=== PATIENT | male | born 1985 | race American Indian/Alaskan Native ===

== ENCOUNTER 2018-01-12 18:52 | Emergency (ER) | payer SELFPAY ==
[2018-01-12] MEDS ORDERED: TYLENOL ONE (19:28)
[2018-01-12] MEDS ORDERED: TYLENOL PO ONE (19:29)
[2018-01-12] MEDS ORDERED: TORADOL IM ONE (21:30)
[2018-01-12] MEDS ORDERED: BENADRYL PO ONE (21:30)
--- NOTE | 2018-01-12 21:48 | Emergency Department Report ---
HPI - General Chief Complaint: Extremity Injury, Upper Time Seen by Provider: 01/12/18 21:10 - HPI HPI: Patient is a 32-year-old male with no prior medical history presents to ED complaining of right thumb pain for the past 5 days patient states that he thought he had a splinter in his thumb and try to get it out with a pain and had some pus come out. Patient states since then he's had worsening pain to the right thumb. She denies any other problems, he denies fevers/chills/nausea vomiting/ ED Past Medical Hx - Past Medical History Previous Medical History?: No - Surgical History Past Surgical History?: Yes Additional Surgical History: Metal plate to left lower jaw - Social History Smoking Status: Current Every Day Smoker Substance Use Type: Alcohol, Marijuana - Medications Home Medications: Home Medications Medication Instructions Recorded Confirmed Last Taken Type Cephalexin [Keflex] 500 mg PO Q12HR #12 cap 01/12/18 Unknown Rx Ibuprofen [Motrin] 800 mg PO Q8HR PRN #30 tablet 01/12/18 Unknown Rx ED Review of Systems ROS: Stated complaint: R THUMB SWELLING Other details as noted in HPI Constitutional: denies: chills, fever Eyes: denies: eye pain, eye discharge, vision change ENT: denies: ear pain, throat pain Respiratory: denies: cough, shortness of breath, wheezing Cardiovascular: denies: chest pain, palpitations Endocrine: no symptoms reported Gastrointestinal: denies: abdominal pain, nausea, diarrhea Genitourinary: denies: urgency, dysuria Musculoskeletal: denies: back pain, joint swelling, arthralgia Skin: denies: rash, lesions Neurological: denies: headache, weakness, paresthesias Psychiatric: denies: anxiety, depression Hematological/Lymphatic: denies: easy bleeding, easy bruising Physical Exam - Physical Exam Vital Signs: Vital Signs 01/12/18 01/12/18 18:55 19:31 Temperature 99.2 F Pulse Rate 81 Respiratory 18 18 Rate Blood Pressure 134/93 O2 Sat by Pulse 96 Oximetry Physical Exam: GENERAL: Alert and oriented x3, no apparent distress, Normal Gait, atraumatic. NECK: Supple. Non edematous, No carotid bruits. No lymphadenopathy or thyromegaly. No C-spine tenderness LUNGS: Symetrical with respiration, No wheezing, no rales or crackles, CTAB. HEART: S1, S2 present, regular rate and rhythm without murmur, no rubs, no gallops. Non tender to palpation EXTREMITIES/MUSCULOSKELETAL: No cyanosis, clubbing, rash, lesions or edema. Full ROM bilaterally. UE/LE Pulses 2+ bilaterally. Right thumb minimal swelling at the anterior lateral aspect. Tenderness to palpation NEUROLOGIC: The patient is cooperative with no focal neurologic deficits. SKIN: Warm and dry, No lesions, No ulceration or induration present. ED Course Vital Signs 01/12/18 01/12/18 18:55 19:31 Temperature 99.2 F Pulse Rate 81 Respiratory 18 18 Rate Blood Pressure 134/93 O2 Sat by Pulse 96 Oximetry ED Medical Decision Making - Medical Decision Making 32-year-old male presented splinter after right thumb Patient received pain meds in ED Splinter removed. Sterile gauze draped Discussed the patient change gauze daily Vital signs are normal patient is in no acute distress Critical care attestation.: If time is entered above; I have spent that time in minutes in the direct care of this critically ill patient, excluding procedure time. ED Disposition Clinical Impression: Splinter in skin Thumb pain Qualifiers: Laterality: right Qualified Code(s): M79.644 - Pain in right finger(s) Disposition: - TO HOME OR SELFCARE Is pt being admited?: No Does the pt Need Aspirin: No Condition: Stable Instructions: Acute Wound Care (ED) Additional Instructions: Make sure to follow up with the primary care physician as discussed. Take all your medications as you've been prescribed. If you have any worsening symptoms or develop new symptoms please return to ED immediately. Prescriptions: Cephalexin [Keflex] 500 mg PO Q12HR #12 cap Ibuprofen [Motrin] 800 mg PO Q8HR PRN #30 tablet PRN Reason: Pain Referrals: KRISTOFER GILMORE MD [Primary Care Provider] - 3-5 Days [facility] [Outside] - 3-5 Days [facility] [Outside] - 3-5 Days [facility] [Outside] - 3-5 Days Forms: Accompanied Note, Work/School Release Form(ED) Time of Disposition: 22:20
[2018-01-12 22:50] VITALS: BP 124/80
== END 2018-01-12 22:53 | disposition home or self-care (01) ==
LOC: ED 18:52
DX: M79.644 Pain in right finger(s) (principal); F17.200 Nicotine dependence, unspecified, uncomplicated
CPT/HCPCS: 96372; 99282; J1885; Q0163

== ENCOUNTER 2018-01-24 21:02 | Emergency (ER) | payer SELFPAY ==
[2018-01-24 21:44] LABS: Basophils % (Auto) 0.3 % (0.0-1.8); Eosinophils % (Auto) 0.2 % (0.0-4.3); Hematocrit 48.5 % (35.5-45.6); Hemoglobin 15.8 gm/dl (11.8-15.2); Lymphocytes # (Auto) 2.3 K/mm3 (1.2-5.4); Lymphocytes % (Auto) 16.8 % (13.4-35.0); Mean Corpuscular HGB Conc 33 % (32-34); Mean Corpuscular Hemoglobin 31 pg (28-32); Mean Corpuscular Volume 96 fl (84-94); Monocytes # (Auto) 1.1 K/mm3 (0.0-0.8); Monocytes % (Auto) 8.4 % (0.0-7.3); Platelet Count 332 K/mm3 (140-440); Red Blood Count 5.05 M/mm3 (3.65-5.03); Red Cell Distribution Width 14.3 % (13.2-15.2)
[2018-01-24 21:51] LABS: BUN/Creatinine Ratio 9; Blood Urea Nitrogen 8 mg/dL (9-20); Calcium 9.1 mg/dL (8.4-10.2); Hemolysis Index 8
[2018-01-24] MEDS ORDERED: TYLENOL ONE (22:06)
[2018-01-24 23:12] LABS: Amphetamine Screen,Urine PRESUMPTIVE NEGATIVE; Benzodiazepines Screen,Urine PRESUMPTIVE NEGATIVE; Methadone Screen,Urine PRESUMPTIVE NEGATIVE; Opiate Screen,Urine PRESUMPTIVE NEGATIVE
--- NOTE | 2018-01-24 23:15 | Cat Scan Report ---
FINAL REPORT PROCEDURE: CT HEAD/BRAIN WO CON TECHNIQUE: Computerized tomography of the head was performed without contrast material. HISTORY: head injury COMPARISON: No prior studies are available for comparison. FINDINGS: Skull and scalp: Normal. Paranasal sinuses: Normal. Ventricles and subarachnoid spaces: Normal. Cerebrum: No evidence of hemorrhage, acute infarction or mass . Cerebellum and brainstem: No evidence of hemorrhage, acute infarction or mass. Vasculature: Normal. Comments: None. IMPRESSION: Normal Examination
--- NOTE | 2018-01-24 23:16 | Cat Scan Report ---
FINAL REPORT PROCEDURE: CT CERVICAL SPINE WO CON TECHNIQUE: Computerized tomography of the cervical spine was performed from the skull base to T1 without contrast material. HISTORY: neck pain, s/p injury, jaw surgery 1 month ago COMPARISON: No prior studies are available for comparison. FINDINGS: The skull base and the foramen magnum are intact. C1-2: No significant abnormality. C2-3: No significant abnormality. C3-4: No significant abnormality. C4-5: No significant abnormality. C5-6: No significant abnormality. C6-7: No significant abnormality. C7-T1: No significant abnormality. Other: There are no fractures or malalignments. The disc spaces are normal. Facet joints are intact.. IMPRESSION: No significant abnormality.
[2018-01-24 23:23] LABS: Cannabinoid Screen,Urine PRESUMPTIVE POSITIVE; Cocaine Screen,Urine PRESUMPTIVE POSITIVE
[2018-01-24 23:27] LABS: Amorphous Crystals,Urine Few; Bilirubin,Urine NEG (Negative); Blood,Urine SM (Negative); Color,Urine Yellow (Yellow); Hyaline Casts,Urine 3 /LPF; Mucus,Urine FEW /HPF; Urobilinogen,Urine < 2.0 mg/dL (<2.0)
--- NOTE | 2018-01-25 00:11 | Cat Scan Report ---
FINAL REPORT PROCEDURE: CT FACIAL BONES WO CON TECHNIQUE: Computerized tomography of the facial bones and soft tissues with axial and coronal sections performed from the cranial aspect of the frontal sinuses to the caudal portion of the mandible without contrast material. HISTORY: left jaw injury, had surgery one month ago COMPARISON: No prior studies are available for comparison. FINDINGS: Bones: There is hardware transfixing healing fracture of the left mandibular body. No acute fractures seen. The temporomandibular joints are intact. The nasal bone and anterior maxillary spine are intact. Zygomatic arches are intact. Bony orbital borrego are intact.. Paranasal sinuses: Clear. Soft tissues: No significant abnormality. Other: None. IMPRESSION: Healing fracture of the left side of the mandible. The hardware is intact. No acute fracture is seen.
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
[2018-01-25] MEDS ORDERED: ULTRAM PO ONE (10:04)
[2018-01-25] MEDS ORDERED: MOTRIN PO ONE (16:58)
[2018-01-25] MEDS ORDERED: TRIPLE ANTIBIOTIC TP ONE (17:20)
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
[2018-01-26] MEDS ORDERED: MOTRIN PO ONE (20:51)
[2018-01-26] MEDS: COGENTIN PO SCH (22:02)
[2018-01-26] MEDS: RisperDAL PO SCH (22:24)
[2018-01-27] MEDS: COGENTIN PO SCH (21:45)
[2018-01-27] MEDS: RisperDAL PO SCH (21:50)
[2018-01-28] MEDS ORDERED: TRIPLE ANTIBIOTIC TP ONE (08:41)
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
[2018-01-28] MEDS: COGENTIN PO SCH (22:01)
[2018-01-28] MEDS: RisperDAL PO SCH (22:01)
[2018-01-29 08:54] VITALS: BP 138/84
[2018-01-29] MEDS ORDERED: TYLENOL PO ONE (10:53)
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
== END 2018-01-29 18:12 ==
LOC: EEVIPCON 21:02 → ED 21:02
DX: R68.84 Jaw pain (principal); Z53.21 Procedure and treatment not carried out due to patient leaving prior to being seen by health care provider
CPT/HCPCS: 36415; 70450; 70486; 72125; 80048; 80307; 81001; 85025; G0480; 80320; A6250